=== PATIENT | male | born 1980 | race Caucasian/White ===

== ENCOUNTER 2024-05-26 17:33 | Emergency (ER) | payer BC ==
[~2024-05-26] VITALS: Ht 185.4 cm; Wt 105.7 kg
[2024-05-26 17:35] VITALS: TEMP 98.3
[2024-05-26 22:37] VITALS: BP 134/85; PULSE 83; RESP 15; O2SAT 97
== END 2024-05-26 22:36 | disposition home or self-care (01) ==
LOC: ER 17:34
DX: M79.604 Pain in right leg (principal); M62.838 Other muscle spasm; Z88.2 Allergy status to sulfonamides
CPT/HCPCS: 93971; 99284

== ENCOUNTER 2024-12-31 22:16 | Emergency (ER) | payer BC ==
[~2024-12-31] VITALS: Ht 185.4 cm; Wt 89.6 kg
--- NOTE | 2025-01-01 02:18 | Physician Documentation ---
History of Present Illness ~ Chief Complaint: Eye Pain Stated Complaint: "GOT SOMETHING IN MY EYE" Time Seen by MD: 02:11 Mode of Arrival: POV HPI Patient presents to the emergency room with right eye irritation that began yesterday morning when he woke up. He states he was working underneath a car the day prior in his not remember actually gained anything in a but when he woke up the next morning and was irritated. He was seen at a clinic and told that has an abrasion and prescribed TobraDex which he reports using but he feels that he may have an adverse reaction to this. He states that he flipped his eyelid and thought he saw a foreign body and flushed it out but it does not feel like it has gone Medication Reconciliation Allergies: Coded Allergies: Sulfa (Sulfonamide Antibiotics) (Unverified Allergy, Intermediate, swelling, 05/26/24) Review of Systems ROS All review of systems negative except as per HPI Physical Exam Vital Signs: Temperature: 98.0, Source: Temporal, Heart Rate: 62, Respiratory Rate: 16, BP: 136/91, Pulse Oximetry: 99, Weight: 89.560 Oxygen Flow Rate: 0 Physical Exam General: Patient is awake, alert, oriented x4 in no acute distress and well appearing.~ Head: Normocephalic and atraumatic. Eyes: Conjunctival injection noted on right with normal left. EOMI. PERRL. Large abrasion noted at the two to 4 o'clock position of the iris using Wood's lamp. No appreciable foreign body in eye or underneath the eyelids ENT: Mucous membranes moist. Neck: Supple, trachea is midline. Chest: Clear to auscultation bilaterally without rales, rhonchi, or wheezes. There is no accessory muscle use or retractions. Cardiac: RRR without murmurs, gallops, or rubs. Progress Results/Orders Results/Orders Completed Orders - TAM AHN MD Proparacaine Ophth Solution (Alcaine Oph (01/01/25 02:15) Vital Signs 12/31/24 01/01/25 22:37 01:45 Temp 98.0 Pulse 78 62 Resp 16 16 B/P (MAP) 119/84 136/91 (106) Pulse Ox 98 99 O2 Flow Rate 0 Medical Decision Making Findings Patient presented to the emergency room for evaluation of feeling a foreign body in the eye as per HPI. Differentials include but are not limited to foreign body, globus rupture, abrasion, viral infection. Wood's lamp exam is reassuring for no foreign body but does note a large abrasion. As patient believes he is having an adverse reaction to his current eye drops we will change his eye drops out. 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
[2025-01-01] MEDS ORDERED: OFLO5DRO RIGHTEYE (02:46)
[2025-01-01] MEDS: proparacaine 0.5% ophthalmic drops 15ml EACHEYE ONE (02:51)
[2025-01-01] MEDS: ofloxacin 0.33% 5ml ophthalmic drops RIGHTEYE ONE (03:12)
[2025-01-01 03:18] VITALS: BP 140/86; PULSE 67; RESP 16; TEMP 98; O2SAT 100
== END 2025-01-01 03:21 | disposition home or self-care (01) ==
LOC: ER 22:17
DX: S05.01XA Injury of conjunctiva and corneal abrasion without foreign body, right eye, initial encounter (principal); Z88.2 Allergy status to sulfonamides; X58.XXXA Exposure to other specified factors, initial encounter; Y93.89 Activity, other specified; Y92.89 Other specified places as the place of occurrence of the external cause; Y99.8 Other external cause status
CPT/HCPCS: 99283